=== PATIENT | male | born 1960 | race African-American/Black ===

== ENCOUNTER 2016-09-08 08:32 | Emergency (ER) | payer MEDICARE, OTHER ==
--- NOTE | ~2016-09-08 | CR127 ---
[facility] A Service of [facility] RADIOLOGY TEXT RESULTS PATIENT: KRISTOFER VILA LOCATION: [facility] : 62 UNIT #: [id number] AGE: [address]: Linda Mascorro APRN SEX: M ORDER DR: [id number] [facility] [address] [place], [place] [address] [id number] E MR#: [id number] #: [id number] NAME: KRISTOFER VILA : 1960 SEX: M STUDY DATE/TIME: 09/08/2016 8:57 UNIT: [facility] ROOM: STUDY DESCRIPTION: CR Foot Complete Min 3 View Rt Attending Physician: Linda Mascorro A.P.R.N. Ordering Physician: Ed Doctor [id number] [facility] Primary Care Physician: Primary Care Physician No MEDICAL IMAGING REPORT This report is preliminary unless electronic signature is present EXAM Right foot 3 views, 09/08/2016 08:57 a.m. COMPARISON None HISTORY Pain in the right foot for 1 week. No injury. FINDINGS There is a chronic fracture deformity of the fifth metatarsal shaft which is healed. Fifth tarsometatarsal and fifth MTP joint are unremarkable. 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 There is no evidence of recent fracture or dislocation. There is evidence of moderate arthritic change at the second tarsometatarsal joint with possible chronic fracture deformity of the medial cuneiform near the Lisfranc ligament. 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 There is also mild arthritic change of the third tarsometatarsal joint. Os trigonum is incidentally noted at the posterior ankle. Additional presumed accessory ossicle projecting in the region of the sinus tarsi on the lateral film is not visualized on the other 2 projections. No radiopaque foreign body or soft tissue swelling is noted. IMPRESSION 1. No acute abnormalities are identified. 2. Chronic healed fracture deformity fifth metatarsal shaft. 3. 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 Correlate for old Lisfranc complex injury. 4. No radiopaque foreign body or soft tissue edema is noted. Dictated by... Nayla Arenas M.D. THIS IS AN ELECTRONICALLY VERIFIED REPORT Nayla Arenas M.D. at 09/09/2016 12:10 PM Vicky TD: 09/08/2016 10:07 JOB #: [id number] MEDICAL IMAGING REPORT Page 1 of 1 COPY
[~2016-09-08 08:32] MED LIST: COZAAR25 MG PO; DESYREL100 MG PO; DIVALPROEX SOD500 M1 PO; FOLIC ACID1 MG PO; RISPERDAL3 MG PO; VITAMIN D31000 UNI1 PO; ZOFRAN ODT4 MG PO
== END 2016-09-08 09:57 | disposition home or self-care (01) ==
LOC: CED 08:32
DX: M79.671 Pain in right foot (principal); F31.9 Bipolar disorder, unspecified; E78.5 Hyperlipidemia, unspecified; Z79.899 Other long term (current) drug therapy
CPT/HCPCS: 29515; 73630; 99283